=== PATIENT | female | born 1935 | race Caucasian/White ===

== ENCOUNTER 2020-09-02 12:34 | Observation (INO) | payer OTHER ==
--- OUTSIDE RECORDS SUMMARY | 2020-09-02 15:03 | XMS REPORT | Continuity of Care Document ---
:1935 Author Organization [facility] t Address [address] [place] [address] Care Team Providers Name Role Phone Tatyana Osborn DO Attending Clinician Problems This patient has no known problems. Allergies, Adverse Reactions, Alerts This patient has no known allergies or adverse reactions. Medications This patient has no known medications. Procedures This patient has no known procedures. Encounters Start End Encounter Admission Attending Care Care Encounter Source Date/Time Date/Time Type Type Clinicians Facility Department ID 2020-08-31 2020-08-31 Emergency FRANKY Osborn [id number] 12:24:00 16:43:00 Annel Bryant [id number] [place] [id number] [place] [id number] Results This patient has no known results.
[2020-09-02] MEDS ORDERED: DIPHENHYDRAMINE 25 MG TAB/CAP PO PRN (17:00)
[2020-09-02] MEDS ORDERED: POLYETHYL GLY 3350 17 GM/DOSE PO PRN (17:00)
[2020-09-02] MEDS ORDERED: INFLUENZA VACCINE (for 3y+) 0.5 ML DOSE IMVAC ONE (17:00)
[2020-09-02] MEDS ORDERED: LOPERAMIDE HCL 2 MG CAPSULE PO PRN (17:00)
[2020-09-02] MEDS ORDERED: ACETAMINOPHEN 325 MG TABLET PO PRN (17:00)
[2020-09-02] MEDS ORDERED: ONDANSETRON 4 MG (ODT) TAB PO PRN (17:00)
[2020-09-02] MEDS ORDERED: PNEUMOCOCCAL VACCINE 0.5 ML IMVAC ONE (17:00)
[2020-09-02] MEDS ORDERED: NACHLORIDE 0.45% 1,000 ML IV SCH (17:00)
[2020-09-02] MEDS ORDERED: ONDANSETRON 4 MG/2 ML VIAL IV PRN (17:00)
[2020-09-02 17:10] LABS: Absolute Lymphocytes (CBC) 1.3 K/uL (0.7-4.9); Basophils % 0.8 % (0-1.3); Hematocrit 36.2 % (36.0-45.0); Lymphocytes % 17.6 % (15.3-44.8); MPV 7.6 fL (7.6-11.3); RBC Red Blood Cell Count 5.17 M/uL (3.86-4.86)
[2020-09-02 17:15] VITALS: BMI 23.6
[2020-09-02 17:25] LABS: Protime INR 0.97
--- NOTE | 2020-09-02 17:32 | RAD REPORT ---
EXAM DESCRIPTION: RAD - Chest Pa And Lat (2 Views) - 09/02/2020 5:13 pm CLINICAL HISTORY: vertigo COMPARISON: None TECHNIQUE: Frontal and lateral views of the chest were obtained. FINDINGS: The lungs are fibrotic with no mass or consolidation. No acute failure or volume overload. Mediastinal and hilar regions show no evidence for mass or lymphadenopathy. Heart size is normal an d central vasculature is within normal limits. No pleural effusion or pneumothorax seen. Bones are osteopenic with accentuated thoracic kyphosis. No aortic abnormality. 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 No surgical clips are noted. IMPRESSION: No acute cardiopulmonary process.
--- NOTE | 2020-09-02 18:26 | RAD REPORT ---
EXAM DESCRIPTION: MRI - MRA Head Wo Cont - 09/02/2020 5:53 pm CLINICAL HISTORY: CVA COMPARISON: None. TECHNIQUE: Axial and coronal 3D [id number] image acquisition was performed. 3D rotational images were generated with source and reconstruction images reviewed. Horizontal and vertical axis rotation al views generated using MIP protocol. FINDINGS: No aneurysm or vascular malformation. The basilar artery and distal internal carotid arter ies show no significant findings. No significant anterior cerebral artery disease. Mild to moderate severity atherosclerotic change seen in the bilateral middle cerebral and posterior cerebral artery distributions. No named branch occlusion, vasculitis or other significant finding. IMPRESSION: Mild to moderate severity atherosclerotic change involving the bilateral middle cerebral and posterior cerebral artery distributions.
[2020-09-02 18:41] LABS: Albumin 3.7 g/dL (3.4-5.0); Bilirubin Direct 0.1 mg/dL (0-0.2); Bilirubin Total 0.4 mg/dL (0.2-1.0); Magnesium 2.1 mg/dL (1.8-2.4); Phosphorus 2.8 mg/dL (2.5-4.9); Potassium 3.9 mmol/L (3.5-5.1); Protein, Total 7.7 g/dL (6.4-8.2)
[2020-09-02 18:42] LABS: Thyroid Stimulating Hormone 8.14 uIU/mL (0.360-3.740)
--- NOTE | 2020-09-02 19:20 | RAD REPORT ---
EXAM DESCRIPTION: MRI - Brain W/Wo Cont - 09/02/2020 6:28 pm CLINICAL HISTORY: CVA, dizziness COMPARISON: MRA Head Wo Cont dated 09/02/2020; MRA Neck W/Wo Cont dated 09/02/2020 TECHNIQUE: Sagittal and axial T1-weighted images were obtained. Axial PD/heavily T2-weighted and T2- FLAIR images were obtained along with axial DWI/ADC mapping sequences. Coronal heavily T2 weighted s equence obtained. Axial and coronal post-contrast T1-weighted images were also obtained. A 12 ml Mu ltihance contrast following utilized. FINDINGS: No intracranial hemorrhage, mass or acute infarction. There is no edema or shift of midli ne structures. No extra-axial fluid collections. Flaherty-matter/white matter junction is preserved. Sig nal voids are seen as a normal finding in the major intracranial vessels. Moderate severity atrophy c hanges are present. Numerous T2 signal abnormalities are seen throughout the cerebral hemispheric whi te matter. Brainstem shows mild chronic ischemic change. Thalamus and basal ganglia tissues generally spared. Ventricles are in proportion to the amount of volume loss. Post-contrast images show normal enhancement. No dural thickening. Mastoid air cells and paranasal sinuses are clear. No globe or orbital content abnormality seen. No sella or supra sella abnormality. IMPRESSION: No acute infarction. No hemorrhage, mass or acute intracranial finding. Moderate severity atrophy and prominent chronic ischemic changes are present.
--- NOTE | 2020-09-02 19:22 | RAD REPORT ---
EXAM DESCRIPTION: MRI - MRA Neck W/Wo Cont - 09/02/2020 6:28 pm CLINICAL HISTORY: CVA, weakness, dizziness TECHNIQUE: MR angiography of the cervical vasculature performed. Coronal imaging plane acquisition u tilized. A 12 MultiHance contrast volume was utilized. Coronal reformatted images were generated and reviewed. Vertical axis 3D rotational projections obtained using maximum intensity projection protoco l. FINDINGS: Aortic arch is 3 vessel configuration with no origins stenosis. Dominant left vertebral ar marsha shows no origin stenosis. Right vertebral artery origin is tortuous and not optimally visualized . The bilateral common carotid and internal carotid arteries show no dissection, significant stenosis o r vasculitis findings. No dissection or focal abnormality of the vertebral arteries. IMPRESSION: MRA neck examination showing no significant or suspicious finding.
[2020-09-02] MEDS: ENOXAPARIN 40 MG/0.4 ML SQ SCH (19:39)
[2020-09-02] MEDS ORDERED: MECLIZINE HCL 12.5 MG TAB PO PRN ×2 (20:19→20:27)
[2020-09-02] MEDS: MECLIZINE HCL 12.5 MG TAB PO SCH (20:29)
[2020-09-02] MEDS ORDERED: MIRTAZAPINE 15 MG TAB PO SCH (21:00)
[2020-09-02] MEDS ORDERED: DIAZEPAM 2 MG TABLET PO SCH (21:00)
[2020-09-03 05:58] LABS: Absolute Lymphocytes (CBC) 1.1 K/uL (0.7-4.9); Basophils % 1.1 % (0-1.3); Hematocrit 30.9 % (36.0-45.0); MPV 7.5 fL (7.6-11.3)
[2020-09-03 06:23] LABS: Potassium 4.1 mmol/L (3.5-5.1)
[2020-09-03] MEDS: MECLIZINE HCL 12.5 MG TAB PO SCH ×2 (08:53→13:33)
[2020-09-03] MEDS: ENOXAPARIN 40 MG/0.4 ML SQ SCH (08:54)
[2020-09-03] MEDS ORDERED: ESCITALOPRAM 20 MG TAB PO SCH (09:00)
[2020-09-03 09:08] VITALS: O2SAT 96
[2020-09-03 11:56] VITALS: BP 161/72; TEMP 97.6
[2020-09-03 11:56] LABS: Urine Appearance CLEAR (Clear); Urine Bilirubin NEGATIVE (Negataive); Urine Blood NEGATIVE (Negative); Urine Color YELLOW (Yellow); Urine Glucose NEGATIVE (Negative); Urine Protein NEGATIVE (Negative); Urine Urobilinogen 0.2 mg/dL (0.2-1.0); Urine pH 6.5 (5.0-7.0)
[2020-09-03 13:02] LABS: Urine Microscopic Reflex NO UMIC
--- NOTE | 2020-09-04 08:12 | ECHO ---
HEIGHT: 5 ft 5 in WEIGHT: 147 lb 3.2 oz DATE OF STUDY: 09/03/[address]: Manohar Bryan MD 2-DIMENSIONAL: YES M.MODE: YES DOPPLER: YES COLOR FLOW: YES TDS: NO PORTABLE: NO DEFINITY: NO BUBBLE STUDY: NO DIAGNOSIS: AORTIC SCLEROSIS CARDIAC HISTORY: CATHERIZATION: NO SURGERY: NO PROSTHETIC VALVE: NO PACEMAKER: NO MEASUREMENTS (cm) DIASTOLIC (NORMALS) SYSTOLIC (NORMALS) IVSd 1.1 (0.6-1.2) LA Diam 3.1 (1.9-4.0) LVEF 80% LVIDd 3.8 (3.5-5.7) LVIDs 2.0 (2.0-3.5) %FS 47% LVPWd 1.2 (0.6-1.2) Ao Diam 2.3 (2.0-3.7) 2 DIMENSIONAL ASSESSMENT: RIGHT ATRIUM: NORMAL LEFT ATRIUM: NORMAL RIGHT VENTRICLE: NORMAL LEFT VENTRICLE: NORMAL TRICUSPID VALVE: NORMAL MITRAL VALVE: MITRAL STENOSIS PULMONIC VALVE: NORMAL AORTIC VALVE: AORTIC STENOSIS PERICARDIAL EFFUSION: NONE AORTIC ROOT: NORMAL LEFT VENTRICULAR WALL MOTION: NORMAL DOPPLER/COLOR FLOW: SEVERE AORTIC STENOSIS. AORTIC VALVE AREA 0.9 CENTIMETERS SQUARED. MILD MITRAL STENOSIS. MITRAL VALVE AREA 1.9 CENTIMETERS SQUARED. COMMENTS: SEVERE AORTIC STENOSIS. AORTIC VALVE AREA 0.9 CENTIMETERS SQUARED. MILD MITRAL STENOSIS. MITRAL VALVE AREA 1.9 CENTIMETERS SQUARED. NORMAL LEFT VENTRICULAR EJECTION FRACTION. NO WALL MOTION ABNORMALITY. TECHNOLOGIST: Layo FOURNIER
--- NOTE | 2020-09-04 20:43 | P.DS ---
Admission Date: 09/02/20 Discharge Date: 09/04/20 Disposition: ROUTINE DISCHARGE Brief History of Present Illness: SHE HAD SEVERE DIZZINESS, UNSTEADINESS. SHE IMPROVED WITH ONE DOSE OF VALIUM AT NIGHT. I ASKED HER TO CONTINUE MECLIZINE QHS. HER MRI, MRA OF BRAIN WAS OKAY. NO ACUTE FINDINGS. Vital Signs/Physical Exam: Temp Pulse Resp BP Pulse Ox 97.6 F 77 16 161/72 H 99 09/03/20 11:54 09/03/20 11:54 09/03/20 11:54 09/03/20 11:54 09/03/20 11:54 Laboratory Data at Discharge: WBC 5.20 K/uL (4.3-10.9) D 09/03/20 05:30 Hgb 10.1 g/dL (12.0-15.0) L 09/03/20 05:30 Hct 30.9 % (36.0-45.0) L 09/03/20 05:30 Plt Count 168 K/uL (152-406) D 09/03/20 05:30 PT 11.2 SECONDS (9.5-12.5) 09/02/20 16:57 INR 0.97 09/02/20 16:57 APTT 24.7 SECONDS (24.3-36.9) 09/02/20 16:57 Sodium 137 mmol/L (136-145) 09/03/20 05:30 Potassium 4.1 mmol/L (3.5-5.1) 09/03/20 05:30 BUN 9 mg/dL (7-18) 09/03/20 05:30 Creatinine 0.72 mg/dL (0.55-1.3) 09/03/20 05:30 Glucose 134 mg/dL (74-106) H 09/03/20 05:30 Phosphorus 2.8 mg/dL (2.5-4.9) 09/02/20 16:57 Magnesium 2.0 mg/dL (1.8-2.4) 09/03/20 05:30 Total Bilirubin 0.4 mg/dL (0.2-1.0) 09/02/20 16:57 AST 22 U/L (15-37) 09/02/20 16:57 ALT 24 U/L (12-78) 09/02/20 16:57 Alkaline Phosphatase 80 U/L (45-117) 09/02/20 16:57 Home Medications: Cefpodoxime Proxetil 100 mg PO BID 09/02/20 Escitalopram [Lexapro] 20 mg PO DAILY 09/02/20 Meclizine HCl [Antivert] 25 mg PO TIDP PRN 09/02/20 Mirtazapine [Remeron] 15 mg PO BEDTIME 09/02/20 Followup: Manohar Bryan MD [ACTIVE - CAN ADMIT] - (call to schedule appointment)
== END 2020-09-03 15:15 | disposition home or self-care (01) ==
LOC: 2ND 15:01
PROVIDERS: ADMIT Internal Medicine; ATTEND Internal Medicine
DX: R42 Dizziness and giddiness (principal); F41.9 Anxiety disorder, unspecified; F32.9 Major depressive disorder, single episode, unspecified; E55.9 Vitamin D deficiency, unspecified; Z20.822 Contact with and (suspected) exposure to COVID-19; I08.0 Rheumatic disorders of both mitral and aortic valves
CPT/HCPCS: 93306; 85025 ×2; 80048 ×2; 36415 ×2; 83735 ×2; 84100; 85610; 82565; 80076; 85730; 84443; 81003; 84439; 82607; 82306; 71046; 70553; 70544; 70549; 97116; 97161; U0003; A9577; J1650 ×2; G0378; G0379

== ENCOUNTER 2020-12-24 16:24 | Emergency (ER) | payer OTHER ==
--- OUTSIDE RECORDS SUMMARY | 2020-12-24 16:27 | XMS REPORT | Continuity of Care Document ---
:[address] [facility] t Address [address] [place] [address] Care Team Providers Name Role Phone Tatyana [...] 2020-08-31 2020-08-31 Emergency FRANKY Osborn [id number] 12:24:00 16:43:00 Annel Bryant [id number] [place] [id number] Seth [phone] [id number] Results This patient has no known results.
--- NOTE | 2020-12-24 17:19 | RAD REPORT ---
EXAM DESCRIPTION: CT - Head C Spine Mpr Wo Con - 12/24/2020 5:06 pm CLINICAL HISTORY: Head and neck injury status post fall. Head and neck pain COMPARISON: 2016 TECHNIQUE: Computed axial tomography of the head and cervical spine was obtained. Sagittal and coronal reconstruction was performed. All CT scans are performed using dose optimization technique as appropriate and may include automated exposure control or mA/KV adjustment according to patient size. FINDINGS: An intracranial bleed is not seen. The ventricles are normal in caliber. An extra-axial fl uid collection is not noted.Fluid within the visualized sinuses and mastoids is not seen A cervical fracture is not visualized. No dislocation is noted. IMPRESSION: No acute intracranial abnormality is seen. A cervical fracture is not visualized. If the patient continues to have symptoms to suggest intracra nial /spinal cord pathology then MRI would be recommended
[2020-12-24] MEDS ORDERED: ONDANSETRON 4 MG (ODT) TAB ONE (17:24)
[2020-12-24] MEDS ORDERED: LIDOCAINE 1% MPF 5 ML VIAL ONE (17:26)
--- NOTE | 2020-12-24 17:38 | ER ---
Nurse's Notes [facility] Name: Sarah Torres Age: 85 yrs Sex: Female : 1935 Arrival Date: 12/24/2020 Time: 16:28 Bed 7 Private MD: Diagnosis: Laceration without foreign body of lip Presentation: 12/24 16:52 Chief complaint: EMS states: s/p fall. lip laceration. pt baseline demented, unable to tr6 assess change in mentation. Care prior to arrival: None. Mechanism of Injury: No Mechanism of Injury. Trauma event details: Injury occurred: December 24, 2020. 16:52 Acuity: CYNTHIA 2 tr6 16:52 Method Of Arrival: EMS: [facility] tr6 17:53 Coronavirus screen: At this time, unable to obtain information related to travel tr6 outside the [place] Ebola Screen: No symptoms or risks identified at this time. Initial Sepsis Screen: Does the patient meet any 2 criteria? No. Patient's initial sepsis screen is negative. Does the patient have a suspected source of infection? No. Patient's initial sepsis screen is negative. Risk Assessment: Do you want to hurt yourself or someone else? Patient reports no desire to harm self or others. Onset of symptoms is unknown. Trauma Activation: Physician: ED Physician; Name: kai bauer; Notified At: ; Arrived At: Physician: General Surgeon; Name: ; Notified At: ; Arrived At: Physician: Radiology; Name: ; Notified At: ; Arrived At: Physician: Respiratory; Name: ; Notified At: ; Arrived At: Physician: Lab; Name: ; Notified At: ; Arrived At: Historical: - Allergies: 17:54 No Known Allergies; tr6 - Immunization history:: Adult Immunizations. - Immunization history: Last tetanus immunization:. - Social history:: Smoking status: unknown. Screenin:56 Abuse screen: Denies threats or abuse. Denies injuries from another. Nutritional tr6 screening: No deficits noted. Tuberculosis screening: No symptoms or risk factors identified. Fall Risk Fall in past 12 months (25 points). Primary Survey: 16:54 NO uncontrolled hemorrhage observed. A: The patient is alert. Airway: patent. tr6 Breathing/Chest: Respiratory pattern: regular, Respiratory effort: spontaneous, Breath sounds: clear, Chest inspection: symmetrical rise and fall of the chest. Circulation: Cardiac rhythm: sinus rhythm. Exposure/Environment: All clothing and personal items were removed. Forensic evidence collection is not deemed to be indicated at this time. Items placed in patient belonging bag. There is no evidence of uncontrolled external bleeding. Obvious injury(ies) are noted at this time: upper lip laceration. 17:49 Disability Alert. tr6 17:53 Reassessment Airway Airway Patent Breathing/Chest Respiratory pattern Regular tr6 Respiratory effort Spontaneous Circulation Heart rhythm Sinus rhythm Disability Alert. Assessment: 16:54 General: Appears in no apparent distress. comfortable, Behavior is calm, cooperative, tr6 appropriate for age. Pain: Complains of pain in upper lip. Neuro: Level of Consciousness is awake, alert, obeys commands, Oriented to person, situation, Appropriate for age forgetful, sometimes confused, baseline dementia. EENT: Oral mucosa is moist. Good dentition noted. Cardiovascular: No deficits noted. Respiratory: No deficits noted. : No deficits noted. Derm: Wound noted mouth. Musculoskeletal: No deficits noted. Injury Description: Laceration sustained to upper lip. Vital Signs: 16:54 BP 179 / 67; Pulse 63; Resp 18; Temp 97.9; Pulse Ox 97% on R/A; tr6 [place] Coma Score: 16:54 Eye Response: spontaneous(4). Verbal Response: oriented(5). Motor Response: obeys tr6 commands(6). Total: 15. Trauma Score (Adult): 16:54 Eye Response: spontaneous(1); Verbal Response: oriented(1); Motor Response: obeys tr6 commands(2); Systolic BP: > 89 mm Hg(4); Respiratory Rate: 10 to 29 per min(4); [place] Score: 15; Trauma Score: 12 ED Course: 16:28 Patient arrived in ED. ds1 16:34 Malick Boland NP is PHCP. pm1 16:35 Kai Bauer MD is Attending Physician. pm1 16:36 PHCP role handed off by Malick Boland NP jr8 16:36 Carlos Sullivan PA is PHCP. jr8 16:54 Triage completed. tr6 16:56 Patient has correct armband on for positive identification. Fall risk band placed. tr6 Placed in gown. Bed in low position. Call light in reach. Side rails up X2. Pulse ox on. NIBP on. Door closed. Noise minimized. Visitors limited. Lights dimmed. Moved to private room. Warm blanket given. Diet: Patient is NPO. 16:56 No provider procedures requiring assistance completed. Patient maintains SpO2 tr6 saturation greater than 95% on room air. 17:06 CT Head C Spine In Process Unspecified. EDMS 17:11 Sarah Hull, RN is Primary Nurse. ap3 17:54 Patient did not have IV access during this emergency room visit. tr6 17:54 Thermoregulation: warm blanket given to patient. tr6 Administered Medications: 17:11 Drug: Ondansetron 4 mg Route: PO; ap3 17:38 Drug: Lidocaine (1 %) 5 mg {Note: admiinistered by Kenny BRANTLEY.} Route: Infiltration; tr6 Outcome: 17:37 Discharge ordered by . jr8 17:53 Discharged to home via wheelchair, with family, pt wheeled out and assisted to car by tr6 RN. daughter to drive pt home 17:53 Condition: good 17:53 Discharge instructions given to patient, family, daughter at bedside Instructed on discharge instructions, follow up and referral plans. medication usage, safety practices, wound care, Demonstrated understanding of instructions, follow-up care, medications, wound care, Prescriptions given X 18:12 Patient left the ED. tr6 Signatures: Dispatcher [employer] [facility] Talia Ellis ds1 Carlos Sullivan PA PA jr8 Malick Boland NP INSTRUMENT TESTER pm1 Sarah Hull, ENZO RN ap3 Eveline Walker RN RN tr6 Corrections: (The following items were deleted from the chart) 17:51 17:49 NO uncontrolled hemorrhage observed tr6 tr6 17:51 17:49 A: The patient is alert. Airway: patent, tr6 tr6 17:51 17:49 Breathing/Chest: Respiratory pattern: regular, Respiratory effort: spontaneous, tr6 tr6 17:51 17:49 Circulation: Cardiac rhythm: sinus rhythm tr6 tr6 17:51 17:49 Exposure/Environment: All clothing and personal items were removed. Forensic tr6 evidence collection is not deemed to be indicated at this time. Items placed in patient belonging bag. There is no evidence of uncontrolled external bleeding. Obvious injury(ies) are noted at this time: lip laceration tr6 18:12 17:53 Discharged to home ambulatory, tr6 tr6
--- NOTE | 2020-12-24 17:38 | EDPHYS ---
Physician Documentation [facility] Name: Sarah Torres Age: 85 yrs Sex: Female : 1935 Arrival Date: 12/24/2020 Time: 16:28 Bed 7 Private MD: ED Physician Kai Bauer HPI: 12/24 17:22 This 85 yrs old Female presents to ER via EMS with complaints of Fall Injury. jr8 17:22 Details of fall: The patient fell from an upright position, while standing. Onset: The jr8 symptoms/episode began/occurred acutely, today. Associated injuries: The patient sustained injury to the head, laceration, 1 cm(s), of the mouth. Severity of symptoms: At their worst the symptoms were mild, in the emergency department the symptoms are unchanged. The patient has not experienced similar symptoms in the past. The patient has not recently seen a physician. This is a 85-year-old female that was at her assisted living facility when she stumbled falling on her face. Denies loss of consciousness. Patient has contusion to the nose with laceration to the lip upon arrival. Patient with history of dementia but is alert to person and place at this time. Can answer all questions appropriately.. Historical: - Allergies: 17:54 No Known Allergies; tr6 - Immunization history:: Adult Immunizations. - Immunization history: Last tetanus immunization:. - Social history:: Smoking status: unknown. ROS: 17:22 Eyes: Negative for injury, pain, redness, and discharge, ENT: Negative for injury, jr8 pain, and discharge, Neck: Negative for injury, pain, and swelling, Cardiovascular: Negative for chest pain, palpitations, and edema, Respiratory: Negative for shortness of breath, cough, wheezing, and pleuritic chest pain, Abdomen/GI: Negative for abdominal pain, nausea, vomiting, diarrhea, and constipation, Back: Negative for injury and pain, MS/Extremity: Negative for injury and deformity, Neuro: Negative for headache, weakness, numbness, tingling, and seizure. 17:22 Skin: Positive for laceration(s), of the mouth. Exam: 17:22 Constitutional: This is a well developed, well nourished patient who is awake, alert, jr8 and in no acute distress. Eyes: Pupils equal round and reactive to light, extra-ocular motions intact. Lids and lashes normal. Conjunctiva and sclera are non-icteric and not injected. Cornea within normal limits. Periorbital areas with no swelling, redness, or edema. ENT: Nares patent. No nasal discharge, no septal abnormalities noted. Mild bruising to the external nose. Tympanic membranes are normal and external auditory canals are clear. Oropharynx with no redness, swelling, or masses, exudates, or evidence of obstruction, uvula midline. Mucous membranes moist. Neck: Trachea midline, no thyromegaly or masses palpated, and no cervical lymphadenopathy. Supple, full range of motion without nuchal rigidity, or vertebral point tenderness. No Meningismus. Cardiovascular: Regular rate and rhythm with a normal S1 and S2. No gallops, murmurs, or rubs. Normal PMI, no JVD. No pulse deficits. Respiratory: Lungs have equal breath sounds bilaterally, clear to auscultation and percussion. No rales, rhonchi or wheezes noted. No increased work of breathing, no retractions or nasal flaring. Abdomen/GI: Soft, non-tender, with normal bowel sounds. No distension or tympany. No guarding or rebound. No evidence of tenderness throughout. Back: No spinal tenderness. No costovertebral tenderness. Full range of motion. Skin: Warm, dry with normal turgor. Normal color with no rashes, no lesions, and no evidence of cellulitis. MS/ Extremity: Pulses equal, no cyanosis. Neurovascular intact. Full, normal range of motion. Neuro: Awake and alert, GCS 15, oriented to person, place, time, and situation. Cranial nerves II-XII grossly intact. Motor strength 5/5 in all extremities. Sensory grossly intact. 17:22 Head/face: Noted is a laceration(s), that is deep, that is linear, 1 cm(s), of the upper lip. Vital Signs: 16:54 BP 179 / 67; Pulse 63; Resp 18; Temp 97.9; Pulse Ox 97% on R/A; tr6 [place] Coma Score: 16:54 Eye Response: spontaneous(4). Verbal Response: oriented(5). Motor Response: obeys tr6 commands(6). Total: 15. Trauma Score (Adult): 16:54 Eye Response: spontaneous(1); Verbal Response: oriented(1); Motor Response: obeys tr6 commands(2); Systolic BP: > 89 mm Hg(4); Respiratory Rate: 10 to 29 per min(4); [place] Score: 15; Trauma Score: 12 Laceration: 17:22 Wound Repair of 1cm ( 0.4in ) mucosal laceration to mouth. Distal neuro/vascular/tendon jr8 intact. Anesthesia: Local anesthetic administered with 2 mls of 1% lidocaine. Skin closed with 2 5-0 fast absorbing chromic using interrupted sutures and sterile technique. Patient tolerated well. MDM: 16:36 Patient medically screened. jr8 17:22 Data reviewed: vital signs, nurses notes, and as a result, I will discharge patient. jr8 Data interpreted: Pulse oximetry: on room air is 100 %. Interpretation: normal. Counseling: I had a detailed discussion with the patient and/or guardian regarding: the historical points, exam findings, and any diagnostic results supporting the discharge/admit diagnosis, the need for outpatient follow up, a family practitioner, to return to the emergency department if symptoms worsen or persist or if there are any questions or concerns that arise at home. ED course: Pain stable in the emergency room. No intracranial or cervical findings on CT. Signs and symptoms given to daughter patient to watch for that would indicate worsening of head injury. Close return precautions given otherwise follow-up with primary care physician in the next 1 to 2 days. Family and patient good with this plan.. 12/24 16:36 Order name: CT Head C Spine; Complete Time: 17:20 jr8 Administered Medications: 17:11 Drug: Ondansetron 4 mg Route: PO; ap3 17:38 Drug: Lidocaine (1 %) 5 mg {Note: admiinistered by Kenny MAJOR} Route: Infiltration; tr6 Disposition: 12/25 07:06 Co-signature as Attending Physician, Kai Bauer MD I agree with the assessment and jazz plan of care. Disposition Summary: 12/24/20 17:37 Discharge Ordered Location: Home jr8 Problem: new jr8 Symptoms: have improved jr8 Condition: Stable jr8 Diagnosis - Laceration without foreign body of lip jr8 Followup: jr8 - With: Private Physician - When: 2 - 3 days - Reason: Recheck today's complaints, Continuance of care, Re-evaluation by your physician Discharge Instructions: - Discharge Summary Sheet jr8 - Laceration Care, Adult jr8 Forms: - Medication Reconciliation Form jr8 - Thank You Letter jr8 - Antibiotic Education jr8 - Prescription Opioid Use jr8 Signatures: Dispatcher [employer] Kai Robin MD MD cha Roszak, Josh, PA PA jr8 Sarah Hull RN RN ap3 Eveline Walker RN RN tr6
[2020-12-24 18:31] VITALS: BP 179/67; TEMP 97.9; O2SAT 97
== END 2020-12-24 18:12 | disposition home or self-care (01) ==
LOC: ER 16:24
PROC: 0CQ0XZZ Repair Upper Lip, External Approach (ICD-10-PCS; principal; 2020-12-24)
DX: S01.511A Laceration without foreign body of lip, initial encounter (principal); W01.0XXA Fall on same level from slipping, tripping and stumbling without subsequent striking against object, initial encounter; Y93.01 Activity, walking, marching and hiking; Y92.099 Unspecified place in other non-institutional residence as the place of occurrence of the external cause
CPT/HCPCS: 70450; 72125; 99284

== ENCOUNTER 2021-02-04 09:03 | Inpatient (IN) | payer OTHER ==
--- OUTSIDE RECORDS SUMMARY | 2021-02-04 09:06 | XMS REPORT | Continuity of Care Document ---
:1935 Author Organization [facility] t Address [address] [place] [address] Care Team Providers Name Role Phone Randi Barroso Primary Care Physician Provider, [facility] Attending Clinician Sandy MADRIGAL Attending Clinician Tatyana Osborn DO Attending Clinician Payers Payer Name Policy Type Policy Number Effective Date Expiration Date S ource Problems Condition Condition Condition Status Onset Resolution Last Treating Co mments Source Name Details Category Date Date Treatment Clinician Date No known No known Disease Unive rs active active ity of problems problems [facility] Allergies, Adverse Reactions, Alerts This patient has no known allergies or adverse reactions. Social History Social Habit Start Date Stop Date Quantity Comments Source Exposure to Not sure [facility] SARS-CoV-2 [facility] (event) Branch Tobacco use and 2021-02-02 2021-02-02 Never used Universit y of exposure 00:00:00 00:00:00 [facility] Alcohol intake 2021-02-02 2021-02-02 Ex-drinker [facility] 00:00:00 00:00:00 (finding) [facility] Sex Assigned At [birth year] [facility] of 00:00:00 00:00:00 [facility] Smoking Status Start Date Stop Date Source Never smoker [facility] Medications Ordered Filled Start Stop Current Ordering Indication Dosage Frequency Signature Comments Components Source Medication Medication Date Date Medication? Clinician (SIG) Name Name benzonatate Yes [id number] 100mg Take 1 Univers (TESSALON - capsule by ity of JAREK) 100 00:00: mouth 3 Deny as mg capsule 00 (three) Medica l times [place] daily as needed for Cough. cefdinir 2020- Yes [id number] 300mg Take 1 U nivers 300 mg 02-02 capsule by ity of capsule 00:00: 04:59 mouth [place] 00 :00 every 12 Medical (twelve) Branch hours for 10 days. escitalopra Yes 20mg Take 20 mg Univers m oxalate 12-24 by mouth ity of 20 mg 00:00: daily. [place] tablet 00 Medical [place] meclizine Yes [id number] 25mg Take 1 U nivers 25 mg 4-10 tablet by ity of tablet 00:00: mouth 3 [place] 00 (three) Medical times [place] daily as needed for Dizziness. Vital Signs Vital Name Observation Time Observation Value Comments Source Systolic blood 2021-02-02 21:26:00 153 mm[Hg[facility] pressure [facility] Diastolic blood 2021-02-02 21:26:00 70 mm[Hg] [facility] Heart rate 2021-02-02 21:26:00 87 /min [facility] Body temperature 2021-02-02 21:26:00 36.78 [place] [facility] Respiratory rate 2021-02-02 21:26:00 16 /min [facility] Body weight 2021-02-02 21:26:00 67.042 kg [facility] BMI 2021-02-02 21:26:00 23.86 kg/m2 [facility] Oxygen saturation in 2021-02-02 21:26:00 96 /min [facility] Arterial blood by [facility] Pulse oximetry Branch Procedures This patient has no known procedures. Encounters Start End Encounter Admission Attending Care Care Encounter Source Date/Time Date/Time Type Type Clinicians Facility Department ID 2021-02-02 2021-02-02 Urgent Provider, T[facility] [id number] Univers 16:23:14 17:13:28 [place] [id number] itMyron [id number] Deny as Servando?Blea [id number] [address] Medical Office Building 2020-08-31 2020-08-31 [facility] [id number] 12:24:00 16:43:00 Annel Joe [place] [id number] [place] [id number] [place] [id number] Results This patient has no known results.
[2021-02-04] MEDS ORDERED: IPRATROPIUM BROM 0.5MG/2.5ML ONE (09:31)
[2021-02-04] MEDS ORDERED: ALBUTEROL 2.5 MG/3 ML NEB SOL ONE ×2 (09:31→10:14)
[2021-02-04 09:39] LABS: Protime INR 1.17
[2021-02-04] MEDS ORDERED: METHYLPREDNISOLONE 125 MG INJ ONE (09:43)
[2021-02-04 09:51] LABS: Arterial Blood Carboxyhemoglob 1.9 % (0-1.5); Blood Gas Oxyhemoglobin 93.6 % (94-97); Blood O2 Saturation 96.3 % (92-98.5)
[2021-02-04 09:59] LABS: Absolute Lymphocytes (CBC) 2.9 K/uL (0.7-4.9); Basophils % 0.6 % (0-1.3); Hematocrit 27.4 % (36.0-45.0); MPV 8.5 fL (7.6-11.3); RBC Red Blood Cell Count 4.24 M/uL (3.86-4.86)
[2021-02-04 10:04] LABS: Albumin 3.1 g/dL (3.4-5.0); Bilirubin Direct 0.2 mg/dL (0-0.2); Bilirubin Total 0.8 mg/dL (0.2-1.0); Potassium 3.8 mmol/L (3.5-5.1); Protein, Total 7.1 g/dL (6.4-8.2); Troponin (Emerg Dept Use Only) 0.04 ng/mL (0.0-0.045)
--- NOTE | 2021-02-04 10:08 | RAD REPORT ---
EXAM DESCRIPTION: RAD - Chest Single View - 02/04/2021 9:43 am CLINICAL HISTORY: DYSPNEA Chest pain. COMPARISON: Chest Pa And Lat (2 Views) dated 09/02/2020 FINDINGS: Portable technique limits examination quality. There is extensive airspace opacity bilaterally, greater left. This likely indicates pneumonia/COVID- 19 infection. The heart is normal in size. No displaced fractures.
[2021-02-04] MEDS ORDERED: LEVALBUTEROL 1.25 MG/3 ML NEB ONE (10:14)
[2021-02-04 10:15] LABS: SARS-COV-2 RT PCR NEGATIVE (NEGATIVE)
[2021-02-04] MEDS ORDERED: INSULIN GLARGINE 100 UNITS/ML SQ ONE (10:15)
[2021-02-04] MEDS ORDERED: PIPER/TAZO/NS 3.375gm 3.375 GM/100 ML BAG ONE (10:27)
[2021-02-04] MEDS ORDERED: NA CHLORIDE 0.9% 2,000 ML ONE (10:45)
[2021-02-04 10:57] LABS: Anisocytosis 1+; Blood Morphology Comment NOTED (NOT SEEN); Hypochromasia 2+; Platelet Estimate ADEQ
--- NOTE | 2021-02-04 11:39 | ER ---
Nurse's Notes [facility] Name: Sarah Torres Age: 86 yrs Sex: Female : 1935 Arrival Date: 02/04/2021 Time: 09:04 Bed 2 Private MD: Manohar Bryan V Diagnosis: Severe sepsis without septic shock;Unspecified bacterial pneumonia Presentation: 02/04 09:06 Chief complaint: Patient states: tested negative for COVID on Wednesday, has been SOB, was iw 58% on RA, up to 96% on NRB. Coronavirus screen: Client presents with at least one sign or symptom that may indicate coronavirus-19. Ebola Screen: Patient negative for fever greater than or equal to 101.5 degrees Fahrenheit, and additional compatible Ebola Virus Disease symptoms Patient denies exposure to infectious person. Patient denies travel to an Ebola-affected area in the 21 days before illness onset. No symptoms or risks identified at this time. Initial Sepsis Screen:. Risk Assessment: Do you want to hurt yourself or someone else? Patient reports no desire to harm self or others. Onset of symptoms was February 04, 2021. 09:06 Method Of Arrival: EMS: [facility] iw 09:06 Acuity: CYNTHIA 2 iw 09:33 Initial Sepsis Screen: Does the patient meet any 2 criteria? RR > 20 per min. Altered jd3 Mental Status. Yes Does the patient have a suspected source of infection? Yes: Productive cough/pneumonia If YES to both, name of provider notified: Carlos BRANTLEY. Triage Assessment: 09:45 Respiratory: Onset: The symptoms/episode began/occurred gradually, the patient has jd3 severe shortness of breath. Historical: - Allergies: 09:41 Cefdinir; jd3 - Home Meds: 09:41 Lexapro Oral [Active]; jd3 - PMHx: 09:41 Dementia; heart mermur; jd3 - PSHx: 09:41 knee replacement; Cholecystectomy; mastectomy; jd3 - Immunization history:: Adult Immunizations unknown. - Social history:: Smoking status: unknown. Screenin:45 Abuse screen: Denies threats or abuse. Nutritional screening: No deficits noted. jd3 Tuberculosis screening: No symptoms or risk factors identified. Fall Risk Ambulatory Aid- None/Bed Rest/Nurse Assist (0 pts). Gait- Normal/Bed Rest/Wheelchair (0 pts) Mental Status- Oriented to own ability (0 pts). Total Khalil Fall Scale indicates No Risk (0-24 pts). Assessment: 09:43 General: Appears distressed, uncomfortable, Behavior is cooperative, appropriate for jd3 age. Pain: Denies pain. Neuro: Level of Consciousness is awake, obeys commands, confused, Oriented to person. Cardiovascular: Capillary refill < 3 seconds Patient's skin is warm and dry. Rhythm is regular. Respiratory: Reports shortness of breath at rest Airway is patent Respiratory effort is labored, shallow, Respiratory pattern is symmetrical, tachypnea Breath sounds are coarse bilaterally. Breath sounds are diminished bilaterally. GI: No signs and/or symptoms were reported involving the gastrointestinal system. : No signs and/or symptoms were reported regarding the genitourinary system. EENT: No signs and/or symptoms were reported regarding the EENT system. Derm: Skin is intact, Skin is dry, Skin is pale, Skin temperature is warm. Musculoskeletal: No signs and/or symptoms reported regarding the musculoskeletal system. 10:32 Reassessment: Patient and/or family updated on plan of care and expected duration. Pain jd3 level reassessed. resting in bed with eyes closed, family at bedside. rails up X 2. call gomez in reach. Patient states symptoms have improved. Respiratory: Airway is patent Respiratory effort is even, relaxed, shallow, Respiratory pattern is symmetrical, tachypnea. 12:46 Reassessment: No changes from previously documented assessment. Patient and/or family jd3 updated on plan of care and expected duration. Pain level reassessed. awaiting admission. 14:22 Reassessment: Patient appears in no apparent distress at this time. No changes from jd3 previously documented assessment. Patient and/or family updated on plan of care and expected duration. Pain level reassessed. Respiratory: Airway is patent Respiratory effort is even, relaxed, Respiratory pattern is regular, symmetrical. 16:10 Reassessment: Patient appears in no apparent distress at this time. No changes from jd3 previously documented assessment. Patient and/or family updated on plan of care and expected duration. Pain level reassessed. Patient states feeling better. 17:25 Reassessment: Patient appears in no apparent distress at this time. Patient and/or jd3 family updated on plan of care and expected duration. Pain level reassessed. Patient is alert, oriented x 3, equal unlabored respirations, skin warm/dry/pink. 17:59 Reassessment: Patient and/or family updated on plan of care and expected duration. Pain jd3 level reassessed. Patient is alert, oriented x 3, equal unlabored respirations, skin warm/dry/pink. report given to Daisy GIRALDO. Vital Signs: 09:30 Resp 37 S; Pulse Ox 89% on Non-rebreather mask; jd3 09:34 BP 97 / 80; Pulse 99; Resp 34 S; Temp 97.3(A); Pulse Ox 97% on BiPAP; jd3 10:18 Weight 66.68 kg (R); jd3 10:33 Pulse 88; Resp 22 S; Pulse Ox 100% on BiPAP; jd3 12:47 BP 155 / 67; Pulse 88; Resp 19 S; Pulse Ox 97% on BiPAP; jd3 14:23 BP 107 / 86; Pulse 92; Resp 20 S; Pulse Ox 99% on BiPAP; jd3 16:10 BP 130 / 84; Pulse 93; Resp 20 S; Pulse Ox 98% on BiPAP; jd3 17:25 BP 137 / 90; Pulse 97; Resp 20 S; Pulse Ox 98% on BiPAP; jd3 ED Course: 09:04 Patient arrived in ED. am2 09:04 Manohar Bryan MD is Private Physician. am2 09:08 Triage completed. iw 09:17 Carlos Sullivan PA is PHCP. jr8 09:17 Kai Bauer MD is Attending Physician. jr8 09:28 Octavio Mensah, ENZO is Primary Nurse. jd3 09:30 Arm band placed on. EKG completed in triage. Results shown to . jd3 09:43 XRAY Chest (1 view) In Process Unspecified. EDMS 09:45 Patient has correct armband on for positive identification. Bed in low position. Call j light in reach. Side rails up X2. Adult w/ patient. youth nutritional monitor on. Pulse ox on. NIBP on. 10:02 PT-INR Sent. ch5 10:02 NT PRO-BNP Sent. ch5 10:02 Magnesium Sent. ch5 10:02 LFT's Sent. ch5 10:02 CBC with Diff Sent. ch5 10:02 Basic Metabolic Panel Sent. ch5 10:02 BIPAP Sent. ch5 11:38 Manohar Bryan MD is Hospitalizing Provider. jr8 17:57 No provider procedures requiring assistance completed. Patient admitted, IV remains in jd3 place. Administered Medications: 09:29 Drug: Albuterol - atroVENT (ipratropium) (3:1) (2.5 mg - 0.5 mg) 3 ml Route: Nebulizer; jd3 10:20 Follow up: Response: No adverse reaction jd3 09:29 Drug: SOLU-Medrol (methylPrednisoLONE) 125 mg Route: IVP; Site: right wrist; jd3 10:20 Follow up: Response: No adverse reaction jd3 10:26 Drug: Zosyn (piperacillin-tazobactam) 3.375 grams Route: IVPB; Infused Over: 60 mins; jd3 Site: right wrist; 11:20 Follow up: Response: No adverse reaction; IV Status: Completed infusion jd3 10:26 Drug: NS 0.9% (30 ml/kg) 30 ml/kg Route: IV; Rate: bolus; Site: right wrist; jd3 11:20 Follow up: Response: No adverse reaction; IV Status: Completed infusion jd3 Outcome: 11:38 Decision to Hospitalize by Provider. jr8 17:59 Admitted to Tele accompanied by tech, via stretcher, room 232, with oxygen, with chart, jd3 Report called to Daisy GIRALDO 17:59 Condition: stable 17:59 Instructed on the need for admit. 18:26 Patient left the ED. iw Signatures: Dispatcher [employer] Aubrie Colvin RN Carlos Alejo PA PA jr8 Sarah Petersen Jonathon, RN RN jd3 Jamar Varghese RN RN ch5 Corrections: (The following items were deleted from the chart) 09:43 09:41 Allergies: No Known Allergies; jd3 jd3
--- NOTE | 2021-02-04 11:39 | EDPHYS ---
Physician Documentation [facility] Name: Sarah Torres Age: 86 yrs Sex: Female : 1935 Arrival Date: 02/04/2021 Time: 09:04 Bed 2 Private MD: Manohar Bryan V ED Physician Kai Bauer HPI: 02/04 11:12 This 86 yrs old Female presents to ER via EMS with complaints of Breathing jr8 Difficulty, Cough. 11:12 The patient has shortness of breath at rest. Onset: The symptoms/episode began/occurred jr8 gradually. Duration: The symptoms are continuous, and are markedly worse than the original presentation. The patient's shortness of breath is aggravated by light activity, walking. Associated signs and symptoms: Pertinent positives: non-productive cough. Severity of symptoms: At their worst the symptoms were severe in the emergency department the symptoms are unchanged. The patient has not experienced similar symptoms in the past. The patient has not recently seen a physician. Was seen by urgent care and had a Covid test the other day which was negative. Patient has been suffering from increased shortness of breath and cough for the past few days. Markedly became worse last night and into this morning. Was transported by EMS this morning for further evaluation. Patient was in the 50s on room air upon EMS arrival to patient's house.. Historical: - Allergies: 09:41 Cefdinir; jd3 - Home Meds: 09:41 Lexapro Oral [Active]; jd3 - PMHx: 09:41 Dementia; heart mermur; jd3 - PSHx: 09:41 knee replacement; Cholecystectomy; mastectomy; jd3 - Immunization history:: Adult Immunizations unknown. - Social history:: Smoking status: unknown. ROS: 11:14 Eyes: Negative for injury, pain, redness, and discharge, ENT: Negative for injury, jr8 pain, and discharge, Neck: Negative for injury, pain, and swelling, Cardiovascular: Negative for chest pain, palpitations, and edema, Abdomen/GI: Negative for abdominal pain, nausea, vomiting, diarrhea, and constipation, Back: Negative for injury and pain, MS/Extremity: Negative for injury and deformity, Skin: Negative for injury, rash, and discoloration, Neuro: Negative for headache, weakness, numbness, tingling, and seizure. 11:14 Respiratory: Positive for cough, dyspnea on exertion, shortness of breath, wheezing. Exam: 11:14 Eyes: Pupils equal round and reactive to light, extra-ocular motions intact. Lids and jr8 lashes normal. Conjunctiva and sclera are non-icteric and not injected. Cornea within normal limits. Periorbital areas with no swelling, redness, or edema. ENT: Nares patent. No nasal discharge, no septal abnormalities noted. Tympanic membranes are normal and external auditory canals are clear. Oropharynx with no redness, swelling, or masses, exudates, or evidence of obstruction, uvula midline. Mucous membranes moist. Neck: Trachea midline, no thyromegaly or masses palpated, and no cervical lymphadenopathy. Supple, full range of motion without nuchal rigidity, or vertebral point tenderness. No Meningismus. Cardiovascular: Regular rate and rhythm with a normal S1 and S2. No gallops, murmurs, or rubs. Normal PMI, no JVD. No pulse deficits. Abdomen/GI: Soft, non-tender, with normal bowel sounds. No distension or tympany. No guarding or rebound. No evidence of tenderness throughout. Back: No spinal tenderness. No costovertebral tenderness. Full range of motion. 11:14 Constitutional: The patient appears alert, awake, in obvious distress. 11:14 Respiratory: moderate respiratory distress is noted, Respirations: labored breathing, tachypnea, Breath sounds: decreased breath sounds, are scattered, wheezing: expiratory that is moderate, is heard diffusely. 11:14 Skin: Appearance: Color: pale, Temperature: cool, Moisture: damp. Vital Signs: 09:30 Resp 37 S; Pulse Ox 89% on Non-rebreather mask; jd3 09:34 BP 97 / 80; Pulse 99; Resp 34 S; Temp 97.3(A); Pulse Ox 97% on BiPAP; jd3 10:18 Weight 66.68 kg (R); jd3 10:33 Pulse 88; Resp 22 S; Pulse Ox 100% on BiPAP; jd3 12:47 BP 155 / 67; Pulse 88; Resp 19 S; Pulse Ox 97% on BiPAP; jd3 14:23 BP 107 / 86; Pulse 92; Resp 20 S; Pulse Ox 99% on BiPAP; jd3 16:10 BP 130 / 84; Pulse 93; Resp 20 S; Pulse Ox 98% on BiPAP; jd3 17:25 BP 137 / 90; Pulse 97; Resp 20 S; Pulse Ox 98% on BiPAP; jd3 MDM: 09:17 Patient medically screened. [facility] 11:33 Data reviewed: vital signs, nurses notes, lab test result(s), EKG, radiologic studies, jr plain films. Data interpreted: Pulse oximetry: on 100 % NRB is 89 %. Interpretation: hypoxia. Counseling: I had a detailed discussion with the patient and/or guardian regarding: the historical points, exam findings, and any diagnostic results supporting the discharge/admit diagnosis, lab results, radiology results, the need for further work-up and treatment in the hospital. 02/04 09:19 Order name: Basic Metabolic Panel [facility] 02/04 09:19 Order name: CBC with Diff 02/04 09:19 Order name: LFT's 02/04 09:19 Order name: Magnesium [facility] 02/04 09:19 Order name: NT PRO-BNP [facility] 02/04 09:19 Order name: PT-INR [facility] 02/04 09:19 Order name: Troponin (emerg Dept Use Only); Complete Time: 10:07 02/04 09:19 Order name: Blood Culture Adult (2) 02/04 09:19 Order name: Procalcitonin; Complete Time: 10:43 02/04 09:19 Order name: Lactate; Complete Time: 10:14 02/04 09:19 Order name: CRP; Complete Time: 10:07 02/04 09:19 Order name: Ferritin; Complete Time: 10:07 02/04 09:19 Order name: XRAY Chest (1 view); Complete Time: 10:14 02/04 09:19 Order name: ABG; Complete Time: 14:03 02/04 09:19 Order name: BIPAP 02/04 09:19 Order name: Basic Metabolic Panel; Complete Time: 10:07 EDGA 02/04 09:19 Order name: CBC with Automated Diff; Complete Time: 11:01 EDGA 02/04 09:19 Order name: Liver (Hepatic) Function; Complete Time: 10:07 EDGA 02/04 09:19 Order name: Magnesium; Complete Time: 10:07 EDGA 02/04 09:19 Order name: NT PRO-BNP; Complete Time: 10:07 EDMS 02/04 09:19 Order name: Protime (+INR); Complete Time: 09:56 EDMS 02/04 10:15 Order name: COVID-19/FLU A+B; Complete Time: 10:24 EDMS 02/04 10:56 Order name: Manual Differential; Complete Time: 11:01 EDMS 02/04 13:14 Order name: Lactate Sepsis 2 HR Follow-up; Complete Time: 13:16 EDMS 02/04 09:19 Order name: EKG; Complete Time: 09:20 8 02/04 09:19 Order name: Cardiac monitoring; Complete Time: 09:29 8 02/04 09:19 Order name: EKG - Nurse/Tech; Complete Time: :29 8 02/04 09:19 Order name: IV Saline Lock; Complete Time: 09:29 8 02/04 09:19 Order name: Labs collected and sent; Complete Time: :8 02/04 09:19 Order name: O2 Per Protocol; Complete Time: 09:29 8 02/04 09:19 Order name: O2 Sat Monitoring; Complete Time: : Administered Medications: 09:29 Drug: Albuterol - atroVENT (ipratropium) (3:1) (2.5 mg - 0.5 mg) 3 ml Route: Nebulizer; jd3 10:20 Follow up: Response: No adverse reaction jd3 09:29 Drug: SOLU-Medrol (methylPrednisoLONE) 125 mg Route: IVP; Site: right wrist; jd3 10:20 Follow up: Response: No adverse reaction jd3 10:26 Drug: Zosyn (piperacillin-tazobactam) 3.375 grams Route: IVPB; Infused Over: 60 mins; jd3 Site: right wrist; 11:20 Follow up: Response: No adverse reaction; IV Status: Completed infusion jd3 10:26 Drug: NS 0.9% (30 ml/kg) 30 ml/kg Route: IV; Rate: bolus; Site: right wrist; jd3 11:20 Follow up: Response: No adverse reaction; IV Status: Completed infusion jd3 Disposition: 02/05 06:42 Co-signature as Attending Physician, Kai Bauer MD I agree with the assessment and jazz plan of care. Disposition Summary: 02/04/21 11:38 Hospitalization Ordered Hospitalization Status: Inpatient Admission jr8 Provider: Manohar Bryan Location: Telemetry/MedSurg (Inpatient) jr8 Condition: Fair jr8 Problem: new jr8 Symptoms: have improved jr8 Bed/Room Type: Standard [facility] Room Assignment: 232(02/04/21 17:10) Diagnosis - Severe sepsis without septic shock jr8 - Unspecified bacterial pneumonia jr8 Forms: - Medication Reconciliation Form jr8 - SBAR form jr8 Signatures: Dispatcher [employer] EDMS Jasmyn Mari RN RN dw Anderson, Corey, MD MD cha Roszak, Josh, PA PA jr8 Octavio Mensah RN RN jd3 Corrections: (The following items were deleted from the chart) 02/04 09:36 09:20 CORONAVIRUS+MR.LAB.BRZ ordered. EDMS EDMS 09:36 09:20 Influenza Screen (A \T\ B)+BA.LAB.BRZ ordered. EDMS EDMS 09:43 09:41 Allergies: No Known Allergies; jd3 jd3 10:56 10:04 CBC Smear Scan ordered. EDMS EDMS 17:10 11:38 jr8 dw
[2021-02-04] MEDS ORDERED: Levofloxacin500mg IV 500 MG/100 ML BAG IV SCH (18:00)
--- NOTE | 2021-02-04 18:07 | P.HP ---
Certification for Inpatient Patient admitted to: Inpatient With expected LOS: >2 Midnights Practitioner: I am a practitioner with admitting privileges, knowledge of patient current condition, hospital course, and medical plan of care. Services: Services provided to patient in accordance with Admission requirements found in Title 42 Section 412.3 of the Code of Federal Regulations Patient History Date of Service: 02/04/21 Reason for admission: SHORT OF BREATH AND COUGH History of Present Illness: SYD IS 86 YEARS OLD LADY WITH RELATEIVELY HEALTHY STATUS GOES TO URGENT CARE FOR COUGH AND DYSPNEA, GOT ABX FROM THERE WITH NO HELP AND ALSO HAS DIARRHEA NOW. SHE IS WEAK, PALE AND HAD DYSPNEA WITH HYPOXIA ON ER ARRIVAL, NEEDING NON REBREATHER. Allergies No Known Allergies Allergy (Verified 09/02/20 19:32) Home medications list reviewed: Yes Home Medications: Cefpodoxime Proxetil 100 mg PO BID 09/02/20 Escitalopram [Lexapro] 20 mg PO DAILY 09/02/20 Meclizine HCl [Antivert] 25 mg PO TIDP PRN 09/02/20 Mirtazapine [Remeron] 15 mg PO BEDTIME 09/02/20 - Past Medical/Surgical History Diabetic: No -: Breast Cancer -: Left Mastectomy -: Left Knee Replacement - Social History Smoking Status: Never smoker Alcohol use: No CD- Drugs: No Caffeine use: No Review of Systems 10-point ROS is otherwise unremarkable General: Weakness, Malaise Respiratory: Shortness of Breath Physical Examination - Physical Exam General: Alert, Oriented x3, Moderate distress, Other (PALLOR) HEENT: Atraumatic, PERRLA, Mucous membr. moist/pink, EOMI, Sclerae nonicteric Neck: Supple, 2+ carotid pulse no bruit, No LAD, Without JVD or thyroid abnormality Respiratory: Clear to auscultation bilaterally, Normal air movement Cardiovascular: Regular rate/rhythm, Normal S1 S2 Gastrointestinal: Normal bowel sounds, No tenderness Musculoskeletal: No tenderness Integumentary: No rashes Neurological: Normal gait, Normal speech, Normal strength at 5/5 x4 extr, Normal tone, Normal affect Lymphatics: No axilla or inguinal lymphadenopathy - Studies Laboratory Data (last 24 hrs) 02/04/21 09:23: PT 13.5 H, INR 1.17 02/04/21 09:23: WBC 20.90 H*, Hgb 8.2 L, Hct 27.4 L, Plt Count 519 H 02/04/21 09:23: Sodium 125 L, Potassium 3.8, BUN 18, Creatinine 0.98, Glucose 332 H, Magnesium 2.0, Total Bilirubin 0.8, AST 30, ALT 34, Alkaline Phosphatase 98 Assessment and Plan - Problems (Diagnosis) (1) Bacterial pneumonia Current Visit: Yes Status: Acute Plan: EXTENSIVE BILATERAL PNUMONIA. AGREE WITH ZOSYN ADD LEVAQUIN FOR ATYPICAL COVERAGE. SPUTUM CULTURE. BLOOD CULTURE. (2) Sepsis Current Visit: Yes Status: Acute Plan: IV CHANGE TO RL BOLUS . FOLLOW PROTOCOL. (3) Anemia Current Visit: Yes Status: Acute Plan: THIS IS ANEW PROBLEM. HER HG IS DOWN TO 8.[address] ABDOMEN ALSO TO RULE OUT ANY OCCULT MALIGNANCY. ANEMIA WORKUP HAS STARTED. MAY HAVE TO GIVE BLOOD. STOP LOVENOX. CONT SCD. - Advance Directives Does patient have a Living Will: No Does patient have a Durable POA for Healthcare: Yes
[2021-02-04] MEDS ORDERED: ACETAMINOPHEN 500 MG TAB PO PRN (19:23)
[2021-02-04] MEDS ORDERED: ENOXAPARIN 40 MG/0.4 ML SQ SCH (19:23)
[2021-02-04] MEDS ORDERED: GLUCAGON 1 MG/VIAL IM PRN (19:23)
[2021-02-04] MEDS ORDERED: ONDANSETRON 4 MG/2 ML VIAL IV PRN (19:23)
[2021-02-04] MEDS ORDERED: D50W 25 GM/50 ML SYRINGE IV PRN (19:23)
[2021-02-04] MEDS ORDERED: ALBUTEROL 2.5 MG/3 ML NEB SOL NEB PRN (19:23)
[2021-02-04] MEDS ORDERED: IPRATROPIUM BROM 0.5MG/2.5ML NEB PRN (19:23)
[2021-02-04] MEDS ORDERED: ALPRAZOLAM 0.25 MG TABLET PO PRN (19:57)
[2021-02-04] MEDS: PIPER/TAZO/NS 3.375gm 3.375 GM/100 ML BAG IVPB SCH (20:15)
[2021-02-04] MEDS: NA CHLORIDE 0.9% 1,000 ML IV SCH (20:39)
[2021-02-04] MEDS ORDERED: PIPERACIL/TAZO 3.375 GM VIAL IV ONE (20:44)
[2021-02-04] MEDS ORDERED: NA CHLORIDE 0.9% 100 ML ONE (20:44)
[2021-02-04 20:48] LABS: RBC Red Blood Cell Count 4.06 M/uL (3.86-4.86)
[2021-02-04] MEDS: INSULIN -REGULAR HUMAN 50 UNIT/0.5 ML ML SQ SCH ×2 (21:00→22:27)
[2021-02-04 21:24] VITALS: BMI 38.2
[2021-02-04 22:18] LABS: Ferritin 16.5 ng/mL (8-388)
[2021-02-04] MEDS ORDERED: FUROSEMIDE 20 MG/ 2ML VIAL IV ONE (23:32)
[2021-02-05] MEDS: PIPER/TAZO/NS 3.375gm 3.375 GM/100 ML BAG IVPB SCH (01:00)
[2021-02-05] MEDS ORDERED: MORPHINE 2 MG/ML SYR IV PRN (01:11)
[2021-02-05] MEDS: LORazepam 2 MG/ML VIAL IV SCH ×4 (01:36→08:49)
[2021-02-05 06:01] VITALS: BP 128/72; TEMP 97.2
[2021-02-05] MEDS: INSULIN -REGULAR HUMAN 50 UNIT/0.5 ML ML SQ SCH (07:30)
[2021-02-05] MEDS: NA CHLORIDE 0.9% 1,000 ML IV SCH (08:43)
[2021-02-05] MEDS ORDERED: PIPER/TAZO/NS 3.375gm 3.375 GM/100 ML BAG IVPB SCH (09:00)
[2021-02-05 11:42] VITALS: O2SAT 87
--- NOTE | 2021-02-05 14:40 | EKG ---
Test Date: 2021-02-04 Test Time: 09:23:07 Fence Installer: MADAN MEASUREMENT RESULTS: Intervals: Rate: 103 [place]: 162 QRSD: 84 QT: 336 QTc: 440 [place]: P: 90 [place]: 162 QRS: 58 T: 226 INTERPRETIVE STATEMENTS: Sinus tachycardia with premature atrial complexes Possible Left atrial enlargement Septal infarct, age undetermined ST & T wave abnormality, consider inferior ischemia Abnormal ECG Compared to ECG 09/02/2004 05:33:00 Myocardial infarct finding now present ST (T wave) deviation now present Possible ischemia now present Sinus rhythm no longer present Electronically Signed On 02-05-21 14:38:32 CDT by Skip Sy
--- NOTE | 2021-02-06 13:20 | P.DS ---
Admission Date: 02/04/21 Discharge Date: 02/06/21 Disposition: HOSPICE-MEDICAL FACILITY Reason for Admission: SHORT OF BREATH AND COUGH - Problems (1) Bacterial pneumonia Status: Acute (2) Sepsis Status: Acute (3) Anemia Status: Acute Brief History of Present Illness: SYD IS 86 YEARS OLD LADY WITH RELATEIVELY HEALTHY STATUS GOES TO URGENT CARE FOR COUGH AND DYSPNEA, GOT ABX FROM THERE WITH NO HELP AND ALSO HAS DIARRHEA NOW. SHE IS WEAK, PALE AND HAD DYSPNEA WITH HYPOXIA ON ER ARRIVAL, NEEDING NON REBREATHER. Hospital Course: SHE GOT WORSE RAPIDLY FROM PNEUMONIA. FAMILY CALLED AT 1 AM TO MAKE HER DNR AND PUT HER ON HOSPICE. THEY WANT COMFORT CARE ONLY. Vital Signs/Physical Exam: Temp Pulse Resp BP Pulse Ox 97.2 F 94 H 20 128/72 88 L 02/05/21 04:00 02/05/21 04:00 02/05/21 04:00 02/05/21 04:00 02/05/21 04:00 Laboratory Data at Discharge: WBC Cancelled 02/05/21 05:00 Hgb Cancelled 02/05/21 05:00 Hct Cancelled 02/05/21 05:00 Plt Count Cancelled 02/05/21 05:00 PT 13.5 SECONDS (9.5-12.5) H 02/04/21 09:23 INR 1.17 02/04/21 09:23 Sodium Cancelled 02/05/21 05:00 Potassium Cancelled 02/05/21 05:00 BUN Cancelled 02/05/21 05:00 Creatinine Cancelled 02/05/21 05:00 Glucose Cancelled 02/05/21 05:00 Magnesium 2.0 mg/dL (1.8-2.4) 02/04/21 09:23 Total Bilirubin 0.8 mg/dL (0.2-1.0) 02/04/21 09:23 AST 30 U/L (15-37) 02/04/21 09:23 ALT 34 U/L (12-78) 02/04/21 09:23 Alkaline Phosphatase 98 U/L (45-117) 02/04/21 09:23 Home Medications: Escitalopram [Lexapro] 20 mg PO DAILY 09/02/20 Followup: Manohar Bryan MD [Primary Care Provider] -
== END 2021-02-05 09:54 | disposition hospice, inpatient (51) | DRG 871 ==
LOC: ER 09:03 → ERHOLD 15:55 → 2ND 17:59
PROVIDERS: ADMIT Internal Medicine; ATTEND Internal Medicine
PROC: 5A09357 Assistance with Respiratory Ventilation, Less than 24 Consecutive Hours, Continuous Positive Airway Pressure (ICD-10-PCS; principal; 2021-02-04)
DX: A41.9 Sepsis, unspecified organism (principal); J15.9 Unspecified bacterial pneumonia; D64.9 Anemia, unspecified; R09.02 Hypoxemia; Z85.3 Personal history of malignant neoplasm of breast; Z90.12 Acquired absence of left breast and nipple; Z96.652 Presence of left artificial knee joint; Z66 Do not resuscitate; Z20.822 Contact with and (suspected) exposure to COVID-19
CPT/HCPCS: 0240U; 36415; 71045; 80048; 80076; 82607; 82728; 82747; 82805; 82947; 83540; 83605; 83615; 83735; 83880; 84145; 84466; 84484; 85025; 85044; 85610; 86140; 86850; 86900; 86901; 87040; 93005; 94640; 94660; 94760; 96365; 96368; 96375; 99285; J1650; J1815; J1940; J2543; J2930; J7030

== ENCOUNTER 2021-02-05 10:01 | Inpatient (IN) | payer OTHER ==
--- OUTSIDE RECORDS SUMMARY | 2021-02-05 10:04 | XMS REPORT | Continuity of Care Document ---
:[address] [facility] t Address [address] [place] [address] Care Team Providers Name Role Phone Randi [...] rs active active ity of problems problems [facility] Allergies, Adverse Reactions, Alerts This patient has no known allergies or adverse reactions. Social History Social Habit Start Date Stop Date Quantity Comments Source Exposure to Not sure [facility] SARS-CoV-2 [facility] (event) Branch Tobacco use and 2021-02-02 2021-02-02 Never used Universit y of exposure 00:00:00 00:00:00 [facility] Alcohol intake 2021-02-02 2021-02-02 Ex-drinker University 00:00:00 00:00:00 (finding) [facility] Sex Ass[birth year] At [birth year] [facility] 00:00:00 00:00:00 [facility] Smoking Status Start Date Stop Date Source Never smoker [facility] Medications Ordered Filled Start Stop Current Ordering Indication Dosage Frequency Signature Comments Components Source Medication Medication Date Date Medication? Clinician (SIG) Name Name benzonatate Yes [id number] 100mg Take 1 Univers (TESSALON -12 capsule by ity of PERLMALCOLM) 100 00:00: mouth 3 [place] as mg capsule 00 (three) Medica l times [place] daily as needed for Cough. cefdinir 2020- Yes [id number] 300mg Take 1 U nivers 300 mg 02-02 capsule by ity of capsule 00:00: 04:59 mouth [place] 00 :00 every 12 Medical (twelve) Branch hours for 10 days. escitalopra Yes 20mg Take 20 mg Univers m oxalate 12-24 by mouth ity of 20 mg 00:00: daily. [place] tablet 00 Medical [place] meclizine Yes [id number] 25mg Take 1 U nivers 25 mg 4-10 tablet by ity of tablet 00:00: mouth 3 [place] 00 (three) Medical times [place] daily as needed for Dizziness. Vital Signs Vital Name Observation Time Observation Value Comments Source Systolic blood 2021-02-02 21:26:00 153 mm[Hg] [facility] pressure [facility] Diastolic blood 2021-02-02 21:26:00 70 mm[Hg] [facility] [place] Heart rate 2021-02-02 21:26:00 87 /min [facility] Body temperature 2021-02-02 21:26:00 36.78 [place] [facility] Respiratory rate 2021-02-02 21:26:00 16 /min [facility] Body weight 2021-02-02 21:26:00 67.042 kg [facility] BMI 2021-02-02 21:26:00 23.86 kg/m2 [facility] Oxygen saturation in 2021-02-02 21:26:00 96 /min [facility] Arterial blood by [facility] Pulse oximetry Branch Procedures This patient has no known procedures. Encounters Start End Encounter Admission Attending Care Care Encounter Source Date/Time Date/Time Type Type Clinicians Facility Department ID 2021-02-02 2021-02-02 Urgent Provider, T[facility] [id number] Univers 16:23:14 17:13:28 [facility] [id number] Jen [id number] Deny as Servando?Blea [id number] [address] Medical Office Building 2020-08-31 2020-08-31 Emergency [facility] [id number] 12:24:00 16:43:00 Annel S[place] [id number] [place] [id number] [place] [id number] Results This patient has no known results.
[2021-02-05] MEDS: LORazepam 2 MG/ML VIAL IV SCH ×7 (11:00→23:56)
[2021-02-05] MEDS: MORPHINE 2 MG/ML SYR IV PRN ×5 (14:13→23:56)
[2021-02-05 16:37] VITALS: BMI 38.2
--- NOTE | 2021-02-05 17:49 | P.HP ---
Certification for Inpatient Patient admitted to: Inpatient With expected LOS: >2 Midnights Practitioner: I am a practitioner with admitting privileges, knowledge of patient current condition, hospital course, and medical plan of care. 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 FAMILY BROUGHT HER TO ER, SHE WAS SEVERELY HYPOXIC. I SAW HER IN ER LAST NIGHT. SHE ALSO WAS SEVEREL ANEMIC. SHE IS GIVEN ZOSYN IV AND SHE CONTINUED TO GET WORSE. SHE IS SUFFERING AND FAMILY CALLED ME LAST NIGHT AT 1 AM TO MAKE HER DNR. WE DID SO AND THEY WANTED HOSPICE TO KEEP HER COMFORTABLE. Allergies No Known Allergies Allergy (Verified 02/04/21 21:00) Home medications list reviewed: Yes Home Medications: Escitalopram [Lexapro] 20 mg PO DAILY 09/02/20 - Past Medical/Surgical History Diabetic: Yes -: Breast Cancer -: Left Mastectomy -: Left Knee Replacement - Social History Smoking Status: Never smoker Alcohol use: No CD- Drugs: No Caffeine use: No Review of Systems General: Weakness, Malaise Respiratory: Shortness of Breath Physical Examination - Vital Signs Temperature: 97.1 F Blood Pressure: 151/78 Pulse: 90 Respirations: 25 Pulse Ox (%): 90 - Physical Exam General: Oriented x1, Severe distress, Confused Respiratory: Diminished, Crackles/rales (DIFFUSE) Cardiovascular: Normal S1 S2 Assessment and Plan - Problems (Diagnosis) (1) Respiratory failure Current Visit: Yes Status: Acute Plan: SHE IS TERMINAL WITH RESPIRATORY FAILURE. I AGREE WITH FAMILY DECISION. TALKED TO DAUGHTER TODAY. CONSOLED HER. SHE MADE A RIGHT CHOICE TO KEEP MOTHER COMFORTABLE SHE IS NOT GOING TO RECOVER. Orders (last 24 hrs) 02/05/21 10:31 Code Status [Resuscitation Status] [CODE.STATUS1] Routine Nursing Orders Routine 02/05/21 10:32 Morphine [Morphine Sulfate] 1 mg IV Q2H PRN 02/05/21 11:00 LORazepam [Ativan] 0.5 mg IV Q2H (2) Anemia Current Visit: No Status: Acute Plan: WILL NOT CHECK AGAIN SHE IS ON HOSPICE. (3) Bacterial pneumonia Current Visit: No Status: Acute - Advance Directives Does patient have a Living Will: Yes Does patient have a Durable POA for Healthcare: Yes
[2021-02-06] MEDS: MORPHINE 2 MG/ML SYR IV PRN ×11 (02:08→22:18)
[2021-02-06] MEDS: LORazepam 2 MG/ML VIAL IV SCH ×11 (02:09→22:17)
[2021-02-06] MEDS ORDERED: SCOPOLAMINE HYDROBROMIDE PATCH TD ONE (10:00)
[2021-02-07] MEDS: MORPHINE 2 MG/ML SYR IV PRN ×11 (00:17→22:39)
[2021-02-07] MEDS: LORazepam 2 MG/ML VIAL IV SCH ×13 (00:17→22:35)
--- NOTE | 2021-02-07 08:53 | P.PN ---
Subjective Date of Service: 02/06/21 Chief Complaint: RESPIRATORY FAILURE SYD IS IN COMATOSE STATE AND BEING CARED FOR BY HOSPICE PROTOCOL. FAMILY IS CONTENT. Physical Examination - Vital Signs Temperature: 97.4 F Blood Pressure: 100/53 Pulse: 96 Respirations: 19 Pulse Ox (%): 70 - Physical Exam General: Comatose Respiratory: Other (RAPID BREATHING WITH PAUSES.) Cardiovascular: Abnormal S1 S2 Assessment And Plan - Current Problems (Diagnosis) (1) Respiratory failure Current Visit: Yes Status: Acute Plan: SHE IS TERMINAL WITH RESPIRATORY FAILURE. I AGREE WITH FAMILY DECISION. TALKED TO DAUGHTER TODAY. CONSOLED HER. SHE MADE A RIGHT CHOICE TO KEEP MOTHER COMFORTABLE SHE IS NOT GOING TO RECOVER. Orders (last 24 hrs) 02/05/21 10:31 Code Status [Resuscitation Status] [CODE.STATUS1] Routine Nursing Orders Routine 02/05/21 10:32 Morphine [Morphine Sulfate] 1 mg IV Q2H PRN 02/05/21 11:00 LORazepam [Ativan] 0.5 mg IV Q2H HOSPICE CARE. (2) Anemia Current Visit: No Status: Acute Plan: WILL NOT CHECK AGAIN SHE IS ON HOSPICE. (3) Bacterial pneumonia Current Visit: No Status: Acute
[2021-02-07 20:39] VITALS: O2SAT 63
[2021-02-07 20:46] VITALS: BP 118/59; TEMP 98
[2021-02-08] MEDS: LORazepam 2 MG/ML VIAL IV SCH ×5 (00:42→07:00)
[2021-02-08] MEDS: MORPHINE 2 MG/ML SYR IV PRN ×4 (00:42→06:11)
--- NOTE | 2021-02-08 09:28 | P.DS ---
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 FAMILY BROUGHT HER TO ER, SHE WAS SEVERELY HYPOXIC. I SAW HER IN ER LAST NIGHT. SHE ALSO WAS SEVEREL ANEMIC. SHE IS GIVEN ZOSYN IV AND SHE CONTINUED TO GET WORSE. SHE IS SUFFERING AND FAMILY CALLED ME LAST NIGHT AT 1 AM TO MAKE HER DNR. WE DID SO AND THEY WANTED HOSPICE TO KEEP HER COMFORTABLE. Hospital Course: MS. READ CAME WITH RESPIRATORY FAILURE. FAMILY MADE A QUICK AND APPROPRIATE DECISION SHE WAS RAPIDLY GETTING WORSE. SHE BECAME COMATOSE IN A DAY. SHE ON HOSPICE EXPECTED. Vital Signs/Physical Exam: Temp Pulse Resp BP Pulse Ox 98 F 102 H 20 118/59 L 75 L 02/07/21 20:00 02/07/21 20:00 02/08/21 06:41 02/07/21 20:00 02/08/21 06:41 Home Medications: Escitalopram [Lexapro] 20 mg PO DAILY 09/02/20
== END 2021-02-08 11:00 | disposition expired | DRG 951 ==
LOC: 2ND 10:01
PROVIDERS: ADMIT Internal Medicine; ATTEND Internal Medicine
DX: Z51.5 Encounter for palliative care (principal); J96.00 Acute respiratory failure, unspecified whether with hypoxia or hypercapnia; J15.9 Unspecified bacterial pneumonia; D64.9 Anemia, unspecified; F41.9 Anxiety disorder, unspecified; Z85.3 Personal history of malignant neoplasm of breast; Z96.652 Presence of left artificial knee joint
CPT/HCPCS: J2270